=== PATIENT | male | born 1965 | race Caucasian/White ===

== ENCOUNTER → 2018-11-20 08:53 | Outpatient (CLI) | payer OTHER, SELFPAY ==
[2018-11-20 12:39] LABS: Absolute Lymphocyte Count 1.53 X10^3/ul (0.83-4.51); Absolute Neutrophil Count 3.8 X10^3/uL (2.0-7.7); Basophil# 0.04 X10^3/uL; Basophil% 0.6 % (0-1); Eosinophil# 0.27 X10^3/uL; Eosinophils% 4.3 % (0-5); Hematocrit 46.2 % (40-54); Hemoglobin 14.8 g/dl (13.0-16.5); Lymphocyte # 1.53 X10^3/ul (4.0); Lymphocyte % 24.2 % (19-41); Mean Corpuscular Hgb 29.6 pg (27.0-32.0); Mean Corpuscular Volume 92.4 fL (80-94); Mean Platelet Vol. 12.1 fl (6.2-12.0); Monocyte# 0.65 X10^3/uL; Monocyte% 10.3 % (0-10); Neutrophil # 3.81 X10^3/uL (2.7-7.7); Neutrophil % 60.4 % (47-70); Platelet Count 249 K/mm3 (150-450); RBC Distribution Width CV 12.7 % (11.6-14.6); RBC Distribution Width SD 42.1 fl (35.1-43.9); White Blood Count 6.3 K/mm3 (4.4-11.0)
[2018-11-20 12:53] LABS: POSITIVE COUNT NO; POSITIVE DIFFERENTIAL NO; POSITIVE MORPHOLOGY NO
[2018-11-20 13:07] LABS: ALB/GLOB Ratio 1.1 RATIO (0.9-2.4); AST(SGOT) 27 U/L (15-37); Alanine Aminotransfer ALT/SGPT 58 U/L (16-61); Albumin, Serum 3.8 g/dL (3.2-5.0); Alkaline Phosphatase 106 U/L (45-117); Anion Gap 4 (5-15); BUN 7 mg/dL (7-18); BUN/Creat Ratio 9.7 RATIO (10-20); Calcium,Total 8.4 mg/dL (8.5-10.1); Chloride 106 mmol/L (98-107); Creatinine, Serum 0.72 mg/dL (0.70-1.30); EST Glomerular Filtration Rate 122 mL/min (>60); Est Glom Filt Rate - Afr Amer 148 mL/min (>60); Globulin 3.5 g/dL (2.2-4.2); Glucose 87 mg/dL (74-106); Potassium 3.3 mmol/L (3.5-5.1); Protein, Total 7.3 g/dL (6.4-8.2); Sodium Level 141 mmol/L (136-145); Thyroid Stim Hormone (TSH) 1.73 uIU/mL (0.358-3.74)
== END ==
PROVIDERS: Family Provider Family Medicine Geriatric Medicine; PCP Family Medicine Geriatric Medicine; Visit Provider Family Medicine Geriatric Medicine
DX: R53.83 Other fatigue (principal)
CPT/HCPCS: 36415; 80053; 84443; 85025

== ENCOUNTER → 2019-01-01 15:50 | Outpatient (CLI) | payer OTHER, SELFPAY ==
[2018-06-12 12:30] VITALS: BMI 27.1
[2019-01-01 17:27] LABS: Anion Gap 2 (5-15); BUN 7 mg/dL (7-18); BUN/Creat Ratio 9.5 RATIO (10-20); Calcium,Total 8.4 mg/dL (8.5-10.1); Chloride 107 mmol/L (98-107); Creatinine, Serum 0.74 mg/dL (0.70-1.30); EST Glomerular Filtration Rate 119 mL/min (>60); Est Glom Filt Rate - Afr Amer 144 mL/min (>60); Glucose 97 mg/dL (74-106); Potassium 4.2 mmol/L (3.5-5.1); Sodium Level 140 mmol/L (136-145)
== END ==
PROVIDERS: Family Provider Family Medicine Geriatric Medicine; PCP Family Medicine Geriatric Medicine; Visit Provider Family Medicine Geriatric Medicine
DX: E87.6 Hypokalemia (principal)
CPT/HCPCS: 36415; 80048

== ENCOUNTER → 2019-07-14 09:30 | Outpatient (CLI) | payer OTHER, SELFPAY ==
--- NOTE | 2019-07-14 09:57 | MRI_ITS ---
STUDY: MRI BRAIN WITH AND WITHOUT CONTRAST REASON FOR EXAM: Male, 54 years old. Multiple sclerosis TECHNIQUE: Standardized multiplanar fat and water weighted pulse sequences were obtained. IV Dotarem 17 was administered for the contrast portion of the examination. COMPARISON: 20 August 2017 FINDINGS: There is a new 5 mm lesion in the right paramedian frontal lobe, posteromedial to a previously seen stable appearing lesion. Remainder of the white matter lesion burden of multiple sclerosis is stable and moderately extensive. Moderate number of lesions have vacuolated. Due to mild improvement in technique the visibility of the lesions is improved. There are no individual lesions greater than 1 cm. Confluent white matter abnormalities present surrounding the right occipital horn and atrium. Brainstem is spared. Brain volume is normal. There are no enhancing lesions. Remainder of the intracranial structures are normal. MRI/Brain W/WO Contrast IMPRESSION: 1. No enhancing lesions. 2. Mild disease progression, one new right frontal lesion. 3. Moderate disease burden of multiple sclerosis. 4. No brainstem lesions. 5. Normal brain volume. Electronically Signed: Nikita Drake, at 19:45 EST Tel , Service support ,
== END ==
PROVIDERS: Family Provider Family Medicine Geriatric Medicine; PCP Family Medicine Geriatric Medicine; Referring Provider Internal Medicine; Visit Provider Internal Medicine
DX: G35 Multiple sclerosis (principal)
CPT/HCPCS: 70553; A9575

== ENCOUNTER → 2019-12-25 | Outpatient (CLI) | payer OTHER, SELFPAY ==
[2018-06-12 12:30] VITALS: BMI 27.1
[2019-12-25 13:54] LABS: Absolute Lymphocyte Count 1.35 X10^3/uL (0.83-4.51); Absolute Neutrophil Count 3.6 X10^3/uL (2.0-7.7); Basophil# 0.07 X10^3/uL; Basophil% 1.2 % (0-1); Eosinophil# 0.24 X10^3/uL; Eosinophils% 4.1 % (0-5); Hemoglobin 15.1 g/dL (13.0-16.5); Lymphocyte # 1.35 X10^3/ul (4.0); Mean Corp Hgb Conc 32.8 g/dL (32-36); Mean Corpuscular Volume 91.5 fL (80-94); Mean Platelet Vol. 11.9 fl (6.2-12.0); Monocyte# 0.62 X10^3/uL; Monocyte% 10.6 % (0-10); NRBC Flagged by Analyzer 0 % (0-5); Neutrophil # 3.57 X10^3/uL (2.7-7.7); Neutrophil % 60.8 % (47-70); Platelet Count 245 K/mm3 (150-450); RBC Distribution Width CV 12.5 % (11.6-14.6); RBC Distribution Width SD 40.9 fl (35.1-43.9); Red Blood Count 5.03 M/mm3 (4.6-6.2); White Blood Count 5.9 K/mm3 (4.4-11.0)
[2019-12-25 14:25] LABS: AST(SGOT) 20 U/L (15-37); Alanine Aminotransfer ALT/SGPT 32 U/L (16-61); Albumin, Serum 3.7 g/dL (3.2-5.0); Alkaline Phosphatase 94 U/L (45-117); Anion Gap 4 (5-15); BUN 8 mg/dL (7-18); BUN/Creat Ratio 11.2 RATIO (10-20); Calcium,Total 8.9 mg/dL (8.5-10.1); Chloride 108 mmol/L (98-107); Creatinine, Serum 0.72 mg/dL (0.70-1.30); EST Glomerular Filtration Rate 123 mL/min (>60); Est Glom Filt Rate - Afr Amer 148 mL/min (>60); Globulin 3.6 g/dL (2.2-4.2); Glucose 73 mg/dL (74-106); Protein, Total 7.3 g/dL (6.4-8.2); Sodium Level 142 mmol/L (136-145); Thyroid Stim Hormone (TSH) 1.45 uIU/mL (0.358-3.74)
== END | disposition home or self-care (01) ==
LOC: LAB.FUTURE 12:07 → LAB 12:09
PROVIDERS: PCP Family Medicine Geriatric Medicine; Referring Provider Family Medicine Geriatric Medicine; Visit Provider Family Medicine Geriatric Medicine
DX: R53.83 Other fatigue (principal)
CPT/HCPCS: 36415; 80053; 84443; 85025

== ENCOUNTER 2020-05-14 07:27 | Emergency (ER) | payer OTHER, SELFPAY ==
[2020-05-14 07:29] VITALS: BP 117/86; PULSE 89; RESP 16; TEMP 36.7; O2SAT 100; BMI 26.4
[2020-05-14 07:31] VITALS: BP 117/86; PULSE 89; RESP 16; TEMP 36.7; O2SAT 100
--- NOTE | 2020-05-14 07:39 | ED.VIS.GEN ---
History of Present Illness Chief Complaint: Abscess Informant: Patient Onset: Today Context: Gradual Onset Timing: Continuous Current Severity: Moderate Maximum Severity: Moderate Narrative: The patient is a 54-year-old male with medical history significant for MS who is on immune response infusion twice a year that presents to the emergency department with abscess on his left buttock. Patient states he woke this morning. He states from time to time, he will get small follicles or ingrown hairs on his buttocks. He states today, he noticed there was an area that popped and was draining. He states that it was mostly blood-tinged. He denies any fevers or chills. He does admit to some mild pain at the area. He is otherwise been in his normal state of health. Prior similar symptoms: Yes Recent Illness/Hospitalization: No Past Medical History - Allergies and Home Meds Allergies/Adverse Reactions: Allergies Penicillins Allergy (Verified 05/14/20 07:27) Hives Primary Care Physician: Rachid Hyde Chi, MD [Primary Care Provider] - Prior records reviewed: Yes Past Medical History: - - MS Surgical History: noncontributory Smoking Status: Never smoker Review of Systems General: Denies: Chills, Fever, Sweats Eyes: Denies: Visual changes - bilaterally, Diplopia ENT: Denies: Rhinorrhea, Sore throat Cardiovascular: Denies: Chest pain, Palpitations Respiratory: Denies: Dyspnea, Cough, Dyspnea on exertion Gastrointestinal: Denies: Abdominal pain, Nausea, Vomiting, Diarrhea, Melena, Hematochezia Genitourinary: Denies: Dysuria, Hematuria, Frequency Musculoskeletal: Denies: Back pain, Extremity Pain Skin: Denies: Rash, Wounds Neurological: Denies: Headache, Weakness, Numbness Physical Exam Vital Signs/Narrative: Vital Signs Temp Pulse Resp BP Pulse Ox 05/14/20 07:31 98.1 F 89 16 117/86 H 100 05/14/20 07:29 98.1 F 89 16 117/86 H 100 Inital Vital Signs reviewed: Yes General: Well nourished, Well developed, No Acute Distress Head: Normocephalic, Atraumatic Eyes: Perrl, EOMI ENT: Moist mucous membranes, No rhinorrhea Neck: Supple, Nontender Cardiovascular: Regular rate, Regular rhythm, No murmurs Respiratory: No distress, CTA bilaterally, Chest nontender Abdomen: Soft, Nontender, Nondistended, Normal bowel sounds Rectal: - - Patient has small abscess on the left buttock that is lateral to the anal verge by approximately 6 cm. It does not appear to communicate. There is about 4 cm ovoid cellulitis with some mild drainage from the middle. No crepitus. No evidence of Itzel's. Back: Nontender, Normal Inspection Extremities: Nontender, No edema Skin: Normal color, No rash Neurological: Alert, Oriented x3, Cranial nerves II-XII grossly intact, Normal Strength, Normal Sensation Psychological: Normal affect, Normal Mood Diagnostic/Tx/Re-eval - Medical Decision Making The patient presents with spontaneously draining abscess on the left buttock. There is some surrounding cellulitis. There was a small poke hole. The area was cleansed with chlorhexidine. 3 cc of lidocaine 1% with epinephrine were injected locally. 11 blade was used to open the puncture. Hemostats were used to break up loculations. There was scant purulence mixed with old blood. This was removed. I did use a small cruciate excision to prevent using packing. Patient will be placed on oral antibiotics and will continue sitz bath's for the next 48 hours. I also counseled him on wound care and reasons to return. He is comfortable with this plan of care. Impression 1. Left gluteal abscess 2. Incision and drainage ED Disposition - Plan for ED Patient: Instructions: ED Abscess Incision And Drainage Prescriptions: Doxycycline 100 mg PO BID #20 cap Prescription Printed Referrals: Rachid Hyde Chi, MD [Primary Care Provider] -
[2020-05-14 08:15] VITALS: RESP 16
== END 2020-05-14 08:15 | disposition home or self-care (01) ==
PROVIDERS: Emergency Provider Emergency Medicine; PCP Family Medicine Geriatric Medicine
DX: L02.31 Cutaneous abscess of buttock (principal); G35 Multiple sclerosis
CPT/HCPCS: 10060; 99282

== ENCOUNTER → 2020-06-03 | Outpatient (CLI) | payer OTHER, SELFPAY ==
[2020-05-14 07:29] VITALS: BMI 26.4
[2020-06-03 20:30] LABS: M R Staph aureus DNA By PCR Negative (Negative); Probe Check PASS; Specimen Processing Control PASS
== END | disposition home or self-care (01) ==
PROVIDERS: PCP Family Medicine Geriatric Medicine; Referring Provider Family Medicine Geriatric Medicine; Visit Provider Family Medicine Geriatric Medicine
DX: B95.62 Methicillin resistant Staphylococcus aureus infection as the cause of diseases classified elsewhere (principal)
CPT/HCPCS: 87641

== ENCOUNTER → 2020-06-27 | Outpatient (CLI) | payer OTHER, SELFPAY ==
[2020-06-27 12:33] LABS: Absolute Lymphocyte Count 1.49 X10^3/uL (0.83-4.51); Basophil# 0.06 X10^3/uL; Basophil% 1.2 % (0-1); Eosinophil# 0.13 X10^3/uL; Eosinophils% 2.6 % (0-5); Hematocrit 46.2 % (40-54); Hemoglobin 14.6 g/dL (13.0-16.5); Lymphocyte # 1.49 X10^3/ul (4.0); Lymphocyte % 29.7 % (19-41); Mean Corp Hgb Conc 31.6 g/dL (32-36); Mean Corpuscular Hgb 29.5 pg (27.0-32.0); Mean Corpuscular Volume 93.3 fL (80-94); Mean Platelet Vol. 11.8 fl (6.2-12.0); Monocyte# 0.38 X10^3/uL; Monocyte% 7.6 % (0-10); NRBC Flagged by Analyzer 0 % (0-5); Neutrophil # 2.95 X10^3/uL (2.7-7.7); Neutrophil % 58.7 % (47-70); Platelet Count 274 K/mm3 (150-450); RBC Distribution Width CV 12.4 % (11.6-14.6); RBC Distribution Width SD 42.5 fl (35.1-43.9); Red Blood Count 4.95 M/mm3 (4.6-6.2)
[2020-06-27 13:00] LABS: ALB/GLOB Ratio 1.1 RATIO (0.9-2.4); AST(SGOT) 22 U/L (15-37); Alanine Aminotransfer ALT/SGPT 40 U/L (16-61); Albumin, Serum 3.8 g/dL (3.2-5.0); Alkaline Phosphatase 84 U/L (45-117); Anion Gap 5 (5-15); BUN 9 mg/dL (7-18); BUN/Creat Ratio 10.7 RATIO (10-20); Chloride 107 mmol/L (98-107); Creatinine, Serum 0.84 mg/dL (0.70-1.30); EST Glomerular Filtration Rate 101 mL/min (>60); Est Glom Filt Rate - Afr Amer 122 mL/min (>60); Globulin 3.4 g/dL (2.2-4.2); Glucose 91 mg/dL (74-106); Potassium 3.9 mmol/L (3.5-5.1); Protein, Total 7.2 g/dL (6.4-8.2); Sodium Level 142 mmol/L (136-145); Thyroid Stim Hormone (TSH) 1.72 uIU/mL (0.358-3.74)
== END | disposition home or self-care (01) ==
LOC: POLAB3 09:34
PROVIDERS: PCP Family Medicine Geriatric Medicine; Visit Provider Family Medicine Geriatric Medicine
DX: R53.83 Other fatigue (principal)
CPT/HCPCS: 36415; 80053; 84443; 85025

== ENCOUNTER → 2020-07-08 | Outpatient (CLI) | payer OTHER, SELFPAY ==
--- NOTE | 2020-07-08 | LES_PTH ---
PATIENT: KELLY BAILEY LOC: [facility] U#:[id number] AGE/SX: 55/M ROOM: RE07/08/[address]: Dr. Rachid Hyde MD : 1965 BED: DIS: 07/08/2020 SPEC #: [id number] RECD: 07/08/20 12:45 STATUS: [place] [facility] #: [id number] REJI: 07/08/20 00:[address]: Rachid Hyde Chi DEPT: SURGICAL PATHOLOGY RECD BY: Makayla Judd Tissues: Skin of neck, NOS Procedures: Surgery Specimen Level IV HEADER OPERATION: Biopsy PRE-OP DIAGNOSIS: L81.9 TISSUE SUBMITTED: Neck MICROSCOPIC DIAGNOSIS Skin lesion of neck, shave biopsy: Actinic keratosis, hyperkeratotic type, mildly inflamed. AM:brigid 07/09/20 MICROSCOPIC DESCRIPTION Slides are reviewed. GROSS DESCRIPTION Received in fixative is one container labeled with the patient's name and designated neck. The specimen consists of a round piece of morrow-white skin measuring 0.7 cm in diameter and 0.2 cm in thickness. The specimen is inked and submitted entirely in one cassette. It will be sectioned at the time of embedding. / SJ:brigid 07/08/20 TC:5 CPT: 40682
== END | disposition home or self-care (01) ==
LOC: POLAB3 12:03 → LABSPEC 12:04
PROVIDERS: PCP Family Medicine Geriatric Medicine; Visit Provider Family Medicine Geriatric Medicine
DX: L81.9 Disorder of pigmentation, unspecified (principal)
CPT/HCPCS: 88305

== ENCOUNTER 2020-08-18 19:32 | Emergency (ER) | payer OTHER, SELFPAY ==
[2020-07-15 14:06] VITALS: BMI 26.9
[2020-08-18 19:33] VITALS: BP 133/80; PULSE 79; RESP 18; TEMP 36.6; O2SAT 100; BMI 27.8
[2020-08-18 19:34] VITALS: BP 133/80; PULSE 79; RESP 18; TEMP 36.6; O2SAT 100
--- NOTE | 2020-08-18 19:41 | ED.VIS.GEN ---
History of Present Illness Chief Complaint: Abscess Informant: Patient Narrative: 54-year-old male presents with abscess on the left gluteal region. He states he is had this in the past. Initially when he had the first 1 it was incised by an ED physician. He was supposed to follow-up with on an outpatient basis however he states it was doing well after antibiotics and incision and drainage and due to COVID-19 he did not want to get exposed. He is not had any systemic signs or symptoms such as fever or chills. He states he just noticed it started to drain today there was small amount of blood from the area on his left gluteal region. His bandaged this up and he came to the emergency room Past Medical History - Allergies and Home Meds Allergies/Adverse Reactions: Allergies Penicillins Allergy (Verified 07/15/20 14:07) Hives Primary Care Physician: Rachid Hyde Chi, MD [Primary Care Provider] - Past Medical History: - - MS Surgical History: noncontributory Lives: Spouse/ Significant Other Smoking Status: Never smoker Alcohol: None Drugs: None Review of Systems General: Denies: Chills, Fever, Sweats Eyes: Denies: Visual changes - bilaterally, Diplopia ENT: Denies: Rhinorrhea, Sore throat Cardiovascular: Denies: Chest pain, Palpitations Respiratory: Denies: Dyspnea, Cough, Dyspnea on exertion Gastrointestinal: Denies: Abdominal pain, Nausea, Vomiting, Diarrhea, Melena, Hematochezia Genitourinary: Denies: Dysuria, Hematuria, Frequency Musculoskeletal: Denies: Back pain, Extremity Pain Skin: Reports: Abscess - Left buttock Neurological: Denies: Headache, Weakness, Numbness Physical Exam Vital Signs/Narrative: Vital Signs Temp Pulse Resp BP Pulse Ox 08/18/20 19:34 97.8 F 79 18 133/80 H 100 08/18/20 19:33 97.8 F 79 18 133/80 H 100 General: Well nourished, Well developed, No Acute Distress Head: Normocephalic, Atraumatic Eyes: Perrl, EOMI ENT: Moist mucous membranes, No rhinorrhea Neck: Supple, Nontender Cardiovascular: Regular rate, Regular rhythm, No murmurs Respiratory: No distress, CTA bilaterally, Chest nontender Skin: - - Abscess on his buttock approximately 3 cm without any induration. There is slight drainage with expression. There is slight fluctuance here. Neurological: Alert, Oriented x3 Psychological: Normal affect, Normal Mood Diagnostic/Tx/Re-eval - Medical Decision Making Patient was seen and evaluated for left buttock abscess. It is slightly draining but likely needs to be opened. I offered incision and drainage however the patient now wants to wait until he sees his surgeon. He will call the office tomorrow. He states he has a prescription for clindamycin already in the pharmacy. I did express to him that the treatment involves incision and drainage and antibiotics but he still wants to wait. I counseled the patient if he cannot get in the office and he needs to have this incised he should return to the ER. Impression: 1. Left gluteal abscess 3 cm ED Disposition - Plan for ED Patient: Disposition: Home or Assisted Living Instructions: ED Abscess Antibiotic Treatment Only Referrals: Rachid Hyde Chi, MD [Primary Care Provider] -
== END 2020-08-18 20:16 | disposition home or self-care (01) ==
LOC: ED 20:15
PROVIDERS: Emergency Provider Student in an Organized Health Care Education/Training Program; PCP Family Medicine Geriatric Medicine
DX: L02.31 Cutaneous abscess of buttock (principal)
CPT/HCPCS: 99282

== ENCOUNTER 2020-09-04 10:55 | Day surgery (SDC) | payer OTHER, SELFPAY ==
[2020-07-15 14:06] VITALS: BMI 26.9
--- NOTE | 2020-08-06 03:48 | HP_ITS ---
Intake Vital Signs 07/15/20 Height 5 ft 9 in 07/15/20 Weight: 182 lb 2 oz 07/15/20 BMI 26.9 07/15/20 BP 122/75 H 07/15/20 Blood Pressure Location Rt brachial 07/15/20 Position Sitting 07/15/20 Respiration 18 07/15/20 Pulse 76 07/15/20 Pulse Source Monitor 07/15/20 Temp 98.0 F 07/15/20 Temp Source Temporal 07/15/20 Pulse Oximetry (%) 100 07/15/20 Oxygen Delivery Method room air Intake Visit Reasons: ABSCESS LEFT BUTTOCK AREA Chief Complaint: abscess left buttock Accompanied by: Is patient in pain?: No Allergies Penicillins Allergy (Verified 07/15/20 14:07) Hives Medications Escitalopram Oxalate 5 mg PO DAILY 05/14/20 [History Confirmed 07/15/20] Ocrelizumab [Ocrevus] 300 mg IV Q180D 05/14/20 [History Confirmed 07/15/20] clindamycin palmitate HCl 75 mg/5 mL oral solution 150 mg PO BID #100 ml 07/15/20 [Rx Confirmed 07/15/20] doxycycline calcium 50 mg/5 mL oral syrup 5 ml PO DAILY #473 ml 07/15/20 [Rx Confirmed 07/15/20] [facility] Medical History (Updated 07/15/20 @ 14:05 by Caren Rodriguez) Acute rhinosinusitis (Acute) Abscess of buttock, left (Acute) Difficulty balancing (Acute) Limb weakness (Acute) Multiple sclerosis (Acute) Seasonal allergies (Acute) Surgical History (Updated 07/15/20 @ 14:05 by Caren Rodriguez) History of hernia repair (Acute) Family History Other Multiple sclerosis Social History (Updated 07/16/20 @ 08:53 by Karissa MARTINEZ PAKvng) Smoking Status: Never smoker alcohol intake: never substance use type: does not use HPI HPI HPI: KELLY BAILEY, is a 55 M who presents to the office today for HPI HPI Surgical H&P: Yes HPI: KELLY BAILEY, is a 55 M who presents to the office today for Chronic left buttock wound. Patient reports that he Had incision and drainage in May. This problem has been going on for 4 months. He reports that it does come and go and occasionally drains. He says that antibiotics take care of and then it comes back. ROS General General: No weight change, appetite, fatigue, colon cancer or breast cancer HEENT HEENT: No difficulty swallowing, eye injury, eye surgery, swollen glands or hoarseness Endo Endocrine: No thyroid disease, diabetes mellitus, thyroid cancer, Hair loss, heat intolerance or cold intolerance Skin Skin: No rash or changing moles Breast Breast: No left breast lump, right breast lump, nipple discharge, breast pain, abnormal mammogram, abnormal US or breast enlargement Musc Musculoskeletal: No back problems, arthritis, rheumatoid arthritis, gout or joint pain Cardio Cardiovascular: No murmur, pacemaker, heart disease, atrial fibrillation, high blood pressure, heart attack, heart stent, palpitations, shortness of breat with exertion or chest pain Psych Psychiatric: Yes anxiety; no depression or hearing voices Resp Respiratory: No shortness of breath, No sleep apnea, No cough, No COPD, No asthma, No emphysema, No wheezing Gastro Gastrointestinal: No abdominal pain, No nausea or vomiting, No diarrhea, No constipation, No blood in stool, No acid reflux, No hemorrhoids, No ulcers, No gallbladder problem, No black,tarry stools Dhaval Hematologic: No blood thinners, No blood disorders, No bleeding, No anemia, No blood clots Exam Const General: cooperative Orientation: alert, oriented x3 Chest Breast Palpation: No nipple discharge Resp Effort & Inspection: normal respiratory effort Auscultation: clear to auscultation bilaterally Cardio Rate: regular rate Rhythm: regular rhythm Heart Sounds: no murmurs GI Inspection: non-distended Palpation: soft, nontender Skin Other: Patient has an area of erythema on the left buttock in the medial portion Assessment & Plan Problems 1. Left buttock abscess L02.31 Plan - Dr. Bryan Valdez MD The patient has left buttock abscess which is been there for 4 months. It does come and go and occasionally drains. At this point I believe the patient needs incision and debridement of the area. I discussed this with him under MAC local anesthesia in the operating room. I have given the patient a refill of his doxycycline and clindamycin and advised him to take these medications and follow-up if anything worsens. Otherwise I will see him back for surgery and debridement of this area. Bryan Valdez MD Pager: [facility] [address] [place] [address], [address] [place] [address] Office: Medications New: clindamycin palmitate HCl 150 mg (10 mL) PO BID 100 mL 1RF doxycycline calcium 5 mL PO DAILY 473 mL 1RF Coding Level of Care Code No Charge Diagnoses Left buttock abscess L02.31 I have re-examined the patient. There are no clinical changes since date of exam.
[2020-08-26 14:26] VITALS: BMI 27.4
[2020-09-04 11:13] VITALS: BP 138/84; PULSE 80; RESP 16; TEMP 36.8; O2SAT 100; BMI 26.8
[2020-09-04] MEDS: Lactated Ringers 1,000 ML 100 ML IV (11:46)
[2020-09-04] MEDS: Scopolamine 1mg/72hr Patch 1 PATCH TD (12:30)
[2020-09-04] MEDS: Bupiv/Epi 0.5% Mpf 30 ML Vial (13:55)
[2020-09-04 14:15] VITALS: BP 100/77; BP 138/84; PULSE 98; RESP 16; TEMP 36.1; O2SAT 97
--- NOTE | 2020-09-04 14:18 | PCM.OPRPT ---
Problem List (1) Left buttock abscess Status: Acute Report of Operation Date of Procedure: 09/04/20 Pre-Operative Diagnosis: Chronic left buttock abscess Post-Operative Diagnosis: Same Surgery/Procedure Performed:: Debridement of chronic left buttock abscess Description of Procedure: Patient was brought back to the operating room and general anesthesia was induced. Patient was then placed in prone jackknife position. The buttocks were prepped and draped in usual sterile fashion. A transverse incision was made over the abscessed area and electrocautery was used to dissect free the inflamed material until healthy fat was reached. We cavity was irrigated and suctioned dry and electrocautery was used to maintain hemostasis. The skin injected with local anesthetic the cavity was then packed with half-inch iodoform gauze and dressed. Patient tolerated procedure well. - Admit VTE Documentation VTE Mechan Device Prophylaxis: SCD's
--- NOTE | 2020-09-04 14:23 | PCM.DC.GS ---
Discharge Diet: Light diet - advance as tolerated Discharge Activity: May Not Drive - No driving for 1 week or while taking narcotic pain meds. May shower in (days): 1 Call your doctor if your incision/area has: Continuous Slow Oozing, Sudden Increased Bleeding, Increased Pain/ Swelling, Increased Redness, Foul Smelling Discharge, Swelling at the incision site Call your doctor if you observe: Fever of 101 or Higher Suture Line Care: Avoid Pulling/Pushing, Avoid Pinching/Bending Change Dressing in (Days):: 2 - Change dressing as needed, remove packing in 2 days Allergies/Adverse Reactions: Allergies Penicillins Allergy (Verified 09/04/20 11:26) Hives Medications to take at Discharge Escitalopram Oxalate 5 mg PO DAILY 05/14/20 Ocrelizumab [Ocrevus] 300 mg IV Q180D 05/14/20 Ascorbic Acid [Vitamin C] 1,000 mg PO DAILY 09/01/20 Acetaminophen/Codeine Liquid [Tylenol W/Cod Liq 300-30MG/12.5ML] 15 ml PO Q4H PRN PRN 3 Days #75 ml 09/04/20 Clindamycin Palmitate HCl [Clindamycin Pediatric] 150 mg PO BID 5 Days #100 ml 09/04/20 The following prescriptions were given: Clindamycin Palmitate HCl [Clindamycin Pediatric] 150 mg PO BID 5 Days #100 ml Transmission Status: Received by [facility] Acetaminophen/Codeine Liquid [Tylenol W/Cod Liq 300-30MG/12.5ML] 15 ml PO Q4H PRN PRN 3 Days #75 ml PRN Reason: Pain Score 4-10 Transmission Status: Received by [facility] Primary Care Physician: Rachid Hyde Chi, MD [Primary Care Provider] - Test Results: Test results from this visit will be discussed in further detail at your follow-up appointment, if applicable. Please Follow Up With: Bryan Valdez MD When: Please call to schedule 1 week follow up appointment. [phone]
[2020-09-04 14:30] VITALS: BP 107/84; BP 138/84; PULSE 90; RESP 16; O2SAT 97
[2020-09-04 14:45] VITALS: BP 126/92; BP 138/84; PULSE 90; RESP 16; O2SAT 99
[2020-09-04 14:52] VITALS: BP 117/87; BP 138/84; PULSE 89; RESP 16; TEMP 36.3; O2SAT 99
[2020-09-04 15:41] VITALS: BP 120/78; BP 138/84; PULSE 90; RESP 16; TEMP 36.5; O2SAT 99
== END 2020-09-04 15:42 | disposition home or self-care (01) ==
LOC: SDC 10:56 → AC 10:56
PROVIDERS: PCP Family Medicine Geriatric Medicine; Referring Provider Surgery; Visit Provider Surgery
PROC: (CPT 10060; principal; 2020-09-04 12:15)
DX: L02.31 Cutaneous abscess of buttock (principal); K21.9 Gastro-esophageal reflux disease without esophagitis; G35 Multiple sclerosis; Z79.899 Other long term (current) drug therapy; Z20.828 Contact with and (suspected) exposure to other viral communicable diseases
CPT/HCPCS: 10060; 87426; J7120; J2405

== ENCOUNTER → 2021-03-20 08:46 | Outpatient (CLI) | payer OTHER, SELFPAY ==
[2021-02-14 09:02] VITALS: BMI 28.8
[2021-03-20 12:23] LABS: Absolute Lymphocyte Count 1.47 X10^3/uL (0.83-4.51); Absolute Neutrophil Count 8.8 X10^3/uL (2.0-7.7); Basophil# 0.06 X10^3/uL; Basophil% 0.5 % (0-1); Eosinophils% 0.9 % (0-5); Hematocrit 47.3 % (40-54); Hemoglobin 15.4 g/dL (13.0-16.5); Lymphocyte # 1.47 X10^3/ul (0.83-4.51); Mean Corp Hgb Conc 32.6 g/dL (32-36); Mean Corpuscular Hgb 29.7 pg (27.0-32.0); Mean Corpuscular Volume 91.1 fL (80-94); Mean Platelet Vol. 11.5 fl (6.2-12.0); Monocyte# 0.83 X10^3/uL; Monocyte% 7.3 % (0-10); NRBC Flagged by Analyzer 0 % (0-5); Neutrophil # 8.81 X10^3/uL (2.7-7.7); Neutrophil % 77.9 % (47-70); Platelet Count 275 K/mm3 (150-450); RBC Distribution Width CV 12.3 % (11.6-14.6); RBC Distribution Width SD 40.8 fl (35.1-43.9); Red Blood Count 5.19 M/mm3 (4.6-6.2); White Blood Count 11.3 K/mm3 (4.4-11.0)
[2021-03-20 12:44] LABS: ALB/GLOB Ratio 1.1 RATIO (0.9-2.4); AST(SGOT) 22 U/L (15-37); Alanine Aminotransfer ALT/SGPT 33 U/L (16-61); Albumin, Serum 3.8 g/dL (3.2-5.0); Alkaline Phosphatase 98 U/L (45-117); Anion Gap 5 (5-15); BUN 8 mg/dL (7-18); BUN/Creat Ratio 9.1 RATIO (10-20); Calcium,Total 8.7 mg/dL (8.5-10.1); Chloride 105 mmol/L (98-107); Creatinine, Serum 0.88 mg/dL (0.70-1.30); EST Glomerular Filtration Rate 96 mL/min (>60); Est Glom Filt Rate - Afr Amer 116 mL/min (>60); Globulin 3.6 g/dL (2.2-4.2); Glucose 94 mg/dL (74-106); Potassium 3.9 mmol/L (3.5-5.1); Protein, Total 7.4 g/dL (6.4-8.2); Sodium Level 141 mmol/L (136-145); Thyroid Stim Hormone (TSH) 1.33 uIU/mL (0.358-3.74)
== END ==
PROVIDERS: PCP Family Medicine Geriatric Medicine; Visit Provider Family Medicine Geriatric Medicine
DX: R53.83 Other fatigue (principal)
CPT/HCPCS: 36415; 80053; 84443; 85025

== ENCOUNTER → 2021-06-12 12:24 | Outpatient (CLI) | payer OTHER, SELFPAY ==
--- NOTE | 2021-06-12 12:31 | MRI_ITS ---
STUDY: MRI BRAIN WITH AND WITHOUT CONTRAST REASON FOR EXAM: Male, 55 years old. MS F/U NO NEW COMPLAINTS TECHNIQUE: Standardized multiplanar fat and water weighted pulse sequences were obtained. IV 18 cc dotarem was administered for the contrast portion of the examination. COMPARISON: 14 July 2019 FINDINGS: There is a new left posterior frontal lobe paramedian 7 mm nonenhancing subcortical white matter lesion, new since July of 2019. There is a possible probable new right medial thalamic ill-defined lesion. Remainder of the white matter lesion burden of multiple sclerosis is stable and moderately extensive. Moderate number of lesions have vacuolated. Confluent white matter disease surrounds the occipital horns. There are stable left central medullary and right anterolateral right middle cerebellar peduncle lesions 5 -- 6 mm. These were present one year ago but not described in the report. There are no enhancing lesions. Remainder of intracranial structures are normal. MRI/Brain W/WO Contrast IMPRESSION: 1. No enhancing lesions. 2. Mild disease progression, one new left frontal lesion, probable new right thalamic lesion. 3. Moderate disease burden of multiple sclerosis. 4. Mild involvement of the brainstem. Electronically Signed: Nikita rDake MD at 14:39 EDT Tel , Service support ,
== END ==
PROVIDERS: PCP Family Medicine Geriatric Medicine; Referring Provider Internal Medicine; Visit Provider Internal Medicine
DX: G35 Multiple sclerosis (principal)
CPT/HCPCS: 70553; A9581

== ENCOUNTER 2022-08-23 20:59 | Emergency (ER) | payer OTHER, SELFPAY ==
[2022-08-23 21:00] VITALS: BP 133/95; PULSE 128; RESP 18; TEMP 37.8; O2SAT 100; BMI 27.1
--- NOTE | 2022-08-23 21:40 | EDS_ITS ---
HPI History of Present Illness Chief Complaint: Fatigue Detail of Chief Complaint: Leg weakness Informant: patient Onset/Context/Timing Onset: Today Narrative Narrative: Patient presents with bilateral leg weakness that started this morning. He states his right leg feels significant more weak than his left. He has a history of MS for the past 12 or 14 years. Has had problems like this with his prior MS flares. He spoke with his neurologist in [place] who did call and let me know the patient was coming in. The patient's recently tested positive for COVID although patient reported had a negative home test today. Neurologist wished for the patient to be evaluated to ensure no sign of infection before treating him with steroid burst for MS flare. [facility] Medical History Abscess of buttock, left Acute rhinosinusitis Difficulty balancing History of drainage of abscess (~08/2020) Limb weakness Multiple sclerosis Seasonal allergies Home Medications ocrelizumab 30 mg/mL intravenous solution 300 mg IV Q180D 05/14/20 [History Last Taken Unknown] ascorbic acid (vitamin C) 1,000 mg tablet 1,000 mg PO DAILY 09/01/20 [History Last Taken 09/04/20 08:00] oxybutynin chloride 10 mg tablet,extended release 24 hr 10 mg PO DAILY 08/23/22 [History Last Taken Unknown] prednisone 20 mg tablet 20 mg PO DAILY #18 tabs 08/23/22 [Rx Last Taken Unknown] Allergy/AdvReac Type Severity Reaction Status Date / Time Penicillins Allergy Hives Verified 08/23/22 21:22 Family History Other Multiple sclerosis Surgical History History of hernia repair Social History Smoking Status: Never smoker alcohol intake: never substance use type: does not use ROS ROS ED Constitutional Constitutional ED: Denies chills or fever(s) Eyes Eyes: Denies change in vision or discharge from eye(s) ENT ENT ED: Reports rhinorrhea; Denies discharge from eye(s) or sore throat Cardiovascular Cardiovascular: Denies chest pain or palpitations Respiratory/Chest Respiratory/Chest: Reports cough; Denies dyspnea Gastrointestinal Gastrointestinal: Denies abdominal pain, diarrhea, nausea or vomiting Genitourinary Genitourinary ED: Denies difficulty urinating or dysuria Musculoskeletal Musculoskeletal: Denies back pain or extremity pain Integumentary Denies Abrasions or rash Neurologic Neurologic: Reports weakness; Denies headache(s) Psychiatric Psychiatric: Denies anxiety or depression Allergic/Immunologic Allergic/Immunologic ED: Denies lip swelling or urticaria EXAM Physical Exam Const Vital Signs: 08/23/22 21:00 08/23/22 21:24 Temperature 100.1 F H Temperature Source Temporal Pulse Rate 128 H Respiratory Rate 18 Respiratory Effort Normal Non-Labored Respiratory Pattern Normal Blood Pressure 133/95 H Blood Pressure Mean 107 Pulse Ox 100 Oxygen Delivery Method Room Air Positive well nourished and well developed General Appearance ED: well developed HEENT Reports normocephalic and head/scalp atraumatic Eyes PERRL and EOMs intact bilaterally Neck supple Chest Wall inspection of chest normal and palpation of chest normal Resp normal respiratory effort and clear to auscultation bilaterally Cardio regular rhythm Rate: tachycardic GI normal to inspection, nondistended, normoactive bowel sounds Palpation: soft Back/Spine no CVA tenderness Extremity normal to inspection Neuro oriented x3 and no sensory deficits noted Neuro Narrative: Patient sitting in bedside chair. Patient able to lift both knees toward the ce iling with good strength. Was able to ambulate in the emergency room including to the restroom and back with his cane. Sensorium / Orientation: alert Psych mental status grossly normal Skin no rashes or lesions noted MDM MDM MDM Narrative Medical decision making narrative: Lab work, chest x-ray, urinalysis obtained. Swabs for COVID and influenza ordered. Lab Data Attestation: I reviewed the patient's lab results. Labs: Laboratory Results - last 24 hr 08/23/22 08/23/22 08/23/22 22:07 22:07 22:07 WBC 8.8 RBC 5.26 Hgb 16.0 Hct 48.1 MCV 91.4 MCH 30.4 MCHC 33.3 RDW Std Deviation 40.6 RDW Coeff of Ivonne 12.1 Plt Count 262 MPV 11.4 Immature Gran % (Auto) 0.300 Neut % (Auto) 75.7 H Lymph % (Auto) 8.3 L [place] % (Auto) 14.4 H Eos % (Auto) 0.8 Baso % (Auto) 0.5 Absolute Neuts (auto) 6.7 Absolute Lymphs (auto) 0.73 L Nucleated RBC % 0 ESR 13 Sodium 138 Potassium 3.4 L Chloride 105 Carbon Dioxide 29.0 Anion Gap 4 L BUN 11 Creatinine 0.89 Estim Creat Clear Calc 93.78 Est GFR (MDRD) Af Amer 115 Est GFR (MDRD) Non-Af 95 BUN/Creatinine Ratio 12.4 Glucose 122 H Calcium 9.1 Total Bilirubin 0.50 Direct Bilirubin 0.17 AST 22 ALT 42 Alkaline Phosphatase 90 C-React Prot Ext Range < 2.90 Total Protein 7.8 Albumin 4.0 Globulin 3.8 Urine Color Yellow Urine Clarity Clear Urine pH 7.0 Ur Specific [place] 1.010 Urine Protein Negative Urine Glucose (UA) Normal Urine Ketones Negative Urine Occult Blood Negative Urine Nitrite Negative Urine Bilirubin Negative Urine Urobilinogen Normal Ur Leukocyte Esterase Negative Urine RBC 0 SEEN Urine WBC 0 SEEN Ur Squamous Epith Cells 0 SEEN Urine Bacteria 0 SEEN Urine Mucus 0 SEEN Radiography Diagnostic Testing: Clinical Impression(s) from Imaging Studies Chest X-Ray 08/23/22 22:12 IMPRESSION: Normal x-ray examination of the chest. Electronically Signed: Milo Cameron MD at 22:27 EST , Treatment and Re-Evaluation Narrative: CBC was normal white count at 8.8 with 75% neutrophils. Chemistry studies remarkable only for slightly low potassium at 3.4. LFTs are unremarkable. Sed rate and CRP are normal. Urinalysis reveals no infection. Swab for COVID and influenza is negative. Patient was able to get up and ambulate across the [place] to the restroom with his cane. He would like to go home. I spoke with his neurologist, Dr. Friedman. Patient will be started on a prednisone taper. Return instructions are given. Discharge Plan Triage Chief Complaint: Fatigue Other Complaint: Lower Extremity Injury ED Provider: Kassi Castorena Dx/Rx/DC Orders Clinical Impression: Bilateral leg weakness, Multiple sclerosis exacerbation Instructions: Multiple Sclerosis Dc Prescriptions: New prednisone 20 mg tablet 20 mg PO DAILY Qty: 18 0RF Rx Instructions: 3 tabs (60mg) daily for 3 days, then 2 tabs (40mg) daily for 3 days, then 1 tab (20mg) daily for 3 days. No Action ocrelizumab 300 MG/10 ML solution 300 mg IV Q180D ascorbic acid (vitamin C) 1,000 MG tablet 1,000 mg PO DAILY oxybutynin chloride 10 mg tablet extended release 24hr 10 mg PO DAILY Label Comments: TAKE 1 TABLET BY MOUTH EVERY DAY Primary Care Provider: Rachid Hyde Chi Referrals: Rachid Hyde Chi, MD [Primary Care Provider] - Activity Restrictions/Additional Instructions: Please follow-up with your neurologist as instructed. Disposition Disposition: Home, Self Care
--- NOTE | 2022-08-23 22:12 | RAD_ITS ---
STUDY: X-RAY CHEST REASON FOR EXAM: Male, 57 years old. cough TECHNIQUE: Single AP portable view of the chest. COMPARISON: 11/01/2016 FINDINGS: The lungs are clear and expanded. There is no demonstrated pleural abnormality. Normal size heart. Normal mediastinum and ki. Normal visualized pulmonary arteries. Normal visualized aortic arch and descending thoracic aorta. Normal visualized thoracic spine. Normal visualized ribs, clavicles, and shoulders. There is no demonstrated abnormality of the visualized soft tissue structures of the upper abdomen. RAD/Chest 1 View (Portable) IMPRESSION: Normal x-ray examination of the chest. Electronically Signed: Milo Cameron MD at 22:27 [facility] ,
[2022-08-23 22:15] LABS: Bacteria 0 SEEN /hpf (None Seen); Mucous, Urine 0 SEEN /hpf (<or=2+); Red Blood Cells-Urine 0 SEEN /hpf (0-5); Squamous Epithelial Cells - UA 0 SEEN /hpf (0-5); White Blood Cells 0 SEEN /hpf (0-5)
[2022-08-23 22:24] LABS: Color, Urine Yellow (Yellow); Glucose, Dipstick Normal (Normal); Ketone-Dipstick Negative (Negative); Leukocyte Esterase-Dipstick Negative /ul (Negative); Nitrite-Dipstick Negative (Negative); Occult Blood-Urine Negative /ul (Negative); Protein-Dipstick Negative (Negative); Urine Bilirubin Dipstick Negative (Negative); Urine Clarity Clear (Clear); Urine Urobilinogen Normal (Normal)
[2022-08-23 22:26] LABS: Absolute Lymphocyte Count 0.73 X10^3/uL (0.83-4.51); Absolute Neutrophil Count 6.7 X10^3/uL (2.0-7.7); Basophil# 0.04 X10^3/uL; Basophil% 0.5 % (0-1); Eosinophil# 0.07 X10^3/uL; Eosinophils% 0.8 % (0-5); Hematocrit 48.1 % (40-54); Lymphocyte # 0.73 X10^3/ul (0.83-4.51); Lymphocyte % 8.3 % (19-41); Mean Corp Hgb Conc 33.3 g/dL (32-36); Mean Corpuscular Hgb 30.4 pg (27.0-32.0); Mean Corpuscular Volume 91.4 fL (80-94); Mean Platelet Vol. 11.4 fl (6.2-12.0); Monocyte# 1.27 X10^3/uL; Monocyte% 14.4 % (0-10); NRBC Flagged by Analyzer 0 % (0-5); Neutrophil # 6.68 X10^3/uL (2.7-7.7); Neutrophil % 75.7 % (47-70); Platelet Count 262 K/mm3 (150-450); RBC Distribution Width CV 12.1 % (11.6-14.6); RBC Distribution Width SD 40.6 fl (35.1-43.9); Red Blood Count 5.26 M/mm3 (4.6-6.2); White Blood Count 8.8 K/mm3 (4.4-11.0)
[2022-08-23 22:48] LABS: AST(SGOT) 22 U/L (15-37); Alanine Aminotransfer ALT/SGPT 42 U/L (16-61); Alkaline Phosphatase 90 U/L (45-117); Anion Gap 4 (5-15); BUN 11 mg/dL (7-18); BUN/Creat Ratio 12.4 RATIO (10-20); Bilirubin, Direct 0.17 mg/dL (0.00-0.30); CRP < 2.90 mg/L (0.0-3.0); Calcium,Total 9.1 mg/dL (8.5-10.1); Chloride 105 mmol/L (98-107); Creatinine, Serum 0.89 mg/dL (0.70-1.30); EST Glomerular Filtration Rate 95 mL/min (>60); Est Glom Filt Rate - Afr Amer 115 mL/min (>60); Estimated Creatinine Clearance 93.78 ml/min; Globulin 3.8 g/dL (2.2-4.2); Glucose 122 mg/dL (74-106); Potassium 3.4 mmol/L (3.5-5.1); Protein, Total 7.8 g/dL (6.4-8.2); Sodium Level 138 mmol/L (136-145)
[2022-08-23 22:56] LABS: Erythrocyte Sedimentation Rate 13 mm/hr (0-20)
[2022-08-23 22:59] VITALS: RESP 16
[2022-08-23 23:48] VITALS: RESP 18
[2022-08-23] MEDS: predniSONE 20 MG Tablet 60 MG PO (23:59)
== END 2022-08-24 00:05 | disposition home or self-care (01) ==
PROVIDERS: Emergency Provider Emergency Medicine; PCP Family Medicine Geriatric Medicine; Visit Provider Emergency Medicine
DX: R53.1 Weakness (principal); G35 Multiple sclerosis
CPT/HCPCS: 71045; 80048; 80076; 81001; 85025; 85652; 86140; 87428; 99283; A4216

== ENCOUNTER → 2022-09-17 | Outpatient (CLI) | payer OTHER, SELFPAY ==
[2022-09-17 13:12] LABS: Basophil# 0.04 X10^3/uL; Basophil% 0.6 % (0-1); Eosinophil# 0.14 X10^3/uL; Eosinophils% 2.1 % (0-5); Hematocrit 46.8 % (40-54); Hemoglobin 15.1 g/dL (13.0-16.5); Lymphocyte % 28.8 % (19-41); Mean Corp Hgb Conc 32.3 g/dL (32-36); Mean Platelet Vol. 11.7 fl (6.2-12.0); Monocyte# 0.52 X10^3/uL; Monocyte% 7.9 % (0-10); NRBC Flagged by Analyzer 0 % (0-5); Neutrophil # 3.96 X10^3/uL (2.7-7.7); Neutrophil % 60.1 % (47-70); Platelet Count 311 K/mm3 (150-450); RBC Distribution Width CV 12.2 % (11.6-14.6); RBC Distribution Width SD 41.6 fl (35.1-43.9); Red Blood Count 5.03 M/mm3 (4.6-6.2); White Blood Count 6.6 K/mm3 (4.4-11.0)
[2022-09-17 13:49] LABS: ALB/GLOB Ratio 1.1 RATIO (0.9-2.4); AST(SGOT) 20 U/L (15-37); Alanine Aminotransfer ALT/SGPT 43 U/L (16-61); Albumin, Serum 3.8 g/dL (3.2-5.0); Alkaline Phosphatase 76 U/L (45-117); Anion Gap 5 (5-15); BUN 12 mg/dL (7-18); BUN/Creat Ratio 14.9 RATIO (10-20); Calcium,Total 9.2 mg/dL (8.5-10.1); Chloride 106 mmol/L (98-107); Creatinine, Serum 0.81 mg/dL (0.70-1.30); EST Glomerular Filtration Rate 105 mL/min (>60); Est Glom Filt Rate - Afr Amer 128 mL/min (>60); Globulin 3.5 g/dL (2.2-4.2); Glucose 121 mg/dL (74-106); PSA,Total - Annual Screen 0.82 ng/mL (0.00-4.00); Potassium 3.9 mmol/L (3.5-5.1); Protein, Total 7.3 g/dL (6.4-8.2); Sodium Level 141 mmol/L (136-145)
== END | disposition home or self-care (01) ==
LOC: POLAB3 09:43
PROVIDERS: PCP Family Medicine Geriatric Medicine; Visit Provider Family Medicine Geriatric Medicine
DX: R53.83 Other fatigue (principal); Z12.5 Encounter for screening for malignant neoplasm of prostate
CPT/HCPCS: 36415; 80053; 84153; 84443; 85025; G0103

== ENCOUNTER → 2022-11-08 | Outpatient (CLI) | payer OTHER, SELFPAY ==
[2022-11-08 17:30] LABS: Absolute Lymphocyte Count 2.16 X10^3/uL (0.83-4.51); Absolute Neutrophil Count 4.5 X10^3/uL (2.0-7.7); Basophil# 0.06 X10^3/uL; Basophil% 0.8 % (0-1); Eosinophil# 0.12 X10^3/uL; Eosinophils% 1.6 % (0-5); Hematocrit 47.1 % (40-54); Hemoglobin 15.4 g/dL (13.0-16.5); Lymphocyte # 2.16 X10^3/ul (0.83-4.51); Lymphocyte % 28.5 % (19-41); Mean Corp Hgb Conc 32.7 g/dL (32-36); Mean Corpuscular Hgb 30.4 pg (27.0-32.0); Mean Corpuscular Volume 92.9 fL (80-94); Mean Platelet Vol. 10.9 fl (6.2-12.0); Monocyte# 0.71 X10^3/uL; Monocyte% 9.4 % (0-10); NRBC Flagged by Analyzer 0 % (0-5); Neutrophil # 4.49 X10^3/uL (2.7-7.7); Neutrophil % 59.3 % (47-70); Platelet Count 334 K/mm3 (150-450); RBC Distribution Width SD 40.9 fl (35.1-43.9); Red Blood Count 5.07 M/mm3 (4.6-6.2); White Blood Count 7.6 K/mm3 (4.4-11.0)
[2022-11-08 18:09] LABS: Anion Gap 7 (5-15); BUN 8 mg/dL (7-18); BUN/Creat Ratio 9.4 RATIO (10-20); Calcium,Total 9.3 mg/dL (8.5-10.1); Chloride 105 mmol/L (98-107); Creatinine, Serum 0.85 mg/dL (0.70-1.30); EST Glomerular Filtration Rate 99 mL/min (>60); Est Glom Filt Rate - Afr Amer 120 mL/min (>60); Glucose 99 mg/dL (74-106); Potassium 3.9 mmol/L (3.5-5.1); Sodium Level 141 mmol/L (136-145)
== END | disposition home or self-care (01) ==
LOC: POLAB3 17:06
PROVIDERS: PCP Family Medicine Geriatric Medicine; Visit Provider Family Medicine Geriatric Medicine
DX: R51.9 Headache, unspecified (principal)
CPT/HCPCS: 36415; 80048; 85025

== ENCOUNTER → 2022-11-10 | Outpatient (CLI) | payer OTHER, SELFPAY ==
--- NOTE | 2022-11-10 16:51 | CT_ITS ---
STUDY: CT BRAIN WITHOUT CONTRAST REASON FOR EXAM: Male, 57 years old. PASCUAL. PATIENT HAS MS FOR 12 YEARS RADIATION DOSAGE (If Supplied By Facility): CTDIvol = ( 44.99 ) mGy, DLP = ( 812.98 ) mGycm TECHNIQUE: Transaxial CT imaging of the brain was performed without administration of intravenous contrast material. Individualized dose optimization techniques were used for this CT. COMPARISON: No relevant priors. FINDINGS: Normal soft tissue structures. Normal calvarium. Normal size ventricles and extra-axial spaces for the patient''s age. There is evidence of a periventricular areas of decreased attenuation more prominent surrounding the occipital lobes and posterior aspect of the lateral ventricles bilaterally worse on the right side. This is in keeping with the patient''s history of a multiple sclerosis. These were seen on prior MRI examination. Normal basal ganglia and thalami. Normal brainstem. Normal cerebellum. There is no intracranial hemorrhage. There are no findings of an acute ischemic infarction. Minimal nodular thickening along the lateral wall of the right maxillary sinuses and anterior aspect of the right sphenoid sinus. CT/Brain/Head without Contrast IMPRESSION: Areas of decreased attenuation in the periventricular distribution along the posterior lateral ventricles worse on the right side. Patient is known to have multiple sclerosis. Electronically Signed: Margarito Sheppard MD at 17:15 EST ,
== END | disposition home or self-care (01) ==
LOC: CT 16:49
PROVIDERS: PCP Family Medicine Geriatric Medicine; Referring Provider Family Medicine Geriatric Medicine; Visit Provider Family Medicine Geriatric Medicine
DX: R51.9 Headache, unspecified (principal)
CPT/HCPCS: 70450

== ENCOUNTER → 2023-05-18 | Outpatient (CLI) | payer OTHER, SELFPAY ==
--- NOTE | 2023-05-18 12:30 | MRI_ITS ---
STUDY: MRI BRAIN WITH AND WITHOUT CONTRAST REASON FOR EXAM: Male, 57 years old. MS TECHNIQUE: Standardized multiplanar fat and water weighted pulse sequences were obtained. IV clariscan 17ml was administered for the contrast portion of the examination. COMPARISON: [June 12, 2021 FINDINGS: Normal size of the ventricles and extra-axial spaces for the patient''s age. There are multiple periventricular white matter lesions bilaterally several of which demonstrate appearance of Arreola''s fingers consistent with clinical history of multiple sclerosis.. There is no mass effect or restricted diffusion.. There is no enhancing white matter plaque to suggest presence of acute demyelination at this time Normal bilateral basal ganglia. Normal thalami. There is no extra-axial fluid accumulation. Normal flow voids within the major intracranial circulation suggesting patency by spin echo criteria. Normal venous enhancement. There is no enhancing intra-axial or extra-axial abnormality. Normal sella turcica, pituitary gland, infundibular stalk, optic chiasm and hypothalamus. Normal tectal plate and pineal gland. Normal midbrain, oanh and medulla. Normal cerebellum. Normal basal cisterns. Normal bilateral temporal bones. Normal bilateral internal auditory canals. No demonstrated orbital abnormality, within the constraints of a routine brain study. Mild polypoid mucosal thickening of the right maxillary sinus. Normal calvarium and skull base. Normal visualized soft tissue structures. No significant change in burden of white matter plaques since previous study MRI/Brain W/WO Contrast IMPRESSION: Findings consistent with known multiple sclerosis with moderate burden of disease unchanged since prior exam without evidence for acute demyelination.. Electronically Signed: Alex Rogers MD at 16:19 EDT ,
--- NOTE | 2023-05-18 12:30 | MRI_ITS ---
STUDY: MRI CERVICAL SPINE WITH AND WITHOUT CONTRAST REASON FOR EXAM: Male, 57 years old. MS TECHNIQUE: Standardized fat and water weighted pulse sequences were obtained in the sagittal and axial following administration of IV clariscan 17ml. COMPARISON: None FINDINGS: Normal foramen magnum and brainstem-cervical cord junction. Normal craniovertebral junction. Normal anterior atlantoaxial articulation. Normal odontoid process. Normal cervical lordosis. Normal vertebral bodies and posterior osseous elements. C2-3: Normal endplates. Normal disc height, signal and tiny central disc protrusion. Normal central canal and intervertebral neural foramina. C3-4: Normal endplates. Normal disc height, signal and small left paracentral disc protrusion.. Normal central canal and intervertebral neural foramina. C4-5: Normal endplates. Normal disc height, signal and tiny central disc protrusion. Normal central canal and intervertebral neural foramina. C5-6: Normal endplates. Normal disc height, signal and minimal bulging of the disc. Normal central canal and intervertebral neural foramina. C6-7: Normal endplates. Normal disc height, signal and minimal bulging disc.. Normal central canal and intervertebral neural foramina. C7-T1: Normal endplates. Normal disc height, signal and morphology. Normal central canal and intervertebral neural foramina. There are multiple high signal lesions within the cervical cord posterior to C2 vertebral body on the left and at C2-3. There is a similar-appearing lesion in the midline and to the right of the midline posterior to C7 and C7-T1 disc spaces Following contrast administration there is equivocal enhancement of the plaques at C7 and C7-T1 however visualized only on the sagittal images likely artifactual. Normal visualized soft tissue structures. MRI/Spine Cervical W/WO Contrast IMPRESSION: No evidence for acute fracture or significant bony pathology. Mild multilevel disc disease without evidence for spinal stenosis or cord compression. Multiple intramedullary demyelinating plaques of the cord consistent with clinical history of multiple sclerosis.. No definitive evidence for active demyelination as described above however clinical correlation is recommended Electronically Signed: Alex Rogers MD at 16:27 EDT ,
== END | disposition home or self-care (01) ==
PROVIDERS: PCP Family Medicine Geriatric Medicine; Referring Provider Internal Medicine; Visit Provider Internal Medicine
DX: G35 Multiple sclerosis (principal)
CPT/HCPCS: 70553; 72156; A9575

== ENCOUNTER → 2023-11-11 | Outpatient (CLI) | payer OTHER, SELFPAY ==
[2023-11-11 10:32] LABS: Absolute Neutrophil Count 5.6 X10^3/uL (2.0-7.7); Basophil# 0.04 X10^3/uL; Basophil% 0.5 % (0-1); Eosinophil# 0.18 X10^3/uL; Eosinophils% 2.2 % (0-5); Hematocrit 46.9 % (40-54); Hemoglobin 15.2 g/dL (13.0-16.5); Mean Corp Hgb Conc 32.4 g/dL (32-36); Mean Corpuscular Hgb 29.6 pg (27.0-32.0); Mean Corpuscular Volume 91.2 fL (80-94); Mean Platelet Vol. 11.7 fl (6.2-12.0); Monocyte# 0.53 X10^3/uL; Monocyte% 6.5 % (0-10); NRBC Flagged by Analyzer 0 % (0-5); Neutrophil # 5.62 X10^3/uL (2.7-7.7); Neutrophil % 68.7 % (47-70); Platelet Count 266 K/mm3 (150-450); RBC Distribution Width CV 11.9 % (11.6-14.6); RBC Distribution Width SD 39.1 fl (35.1-43.9); Red Blood Count 5.14 M/mm3 (4.6-6.2); White Blood Count 8.2 K/mm3 (4.4-11.0)
[2023-11-11 10:52] LABS: ALB/GLOB Ratio 1.1 RATIO (0.9-2.4); AST(SGOT) 22 U/L (15-37); Alanine Aminotransfer ALT/SGPT 32 U/L (16-61); Albumin, Serum 3.7 g/dL (3.2-5.0); Alkaline Phosphatase 83 U/L (45-117); Anion Gap 6 (5-15); BUN 10 mg/dL (7-18); BUN/Creat Ratio 13.4 RATIO (10-20); Calcium,Total 8.9 mg/dL (8.5-10.1); Chloride 107 mmol/L (98-107); Creatinine, Serum 0.75 mg/dL (0.70-1.30); EST Glomerular Filtration Rate 115 mL/min (>60); Est Glom Filt Rate - Afr Amer 139 mL/min (>60); Globulin 3.3 g/dL (2.2-4.2); Glucose 107 mg/dL (74-106); PSA,Total - Annual Screen 0.67 ng/mL (0.00-4.00); Potassium 3.8 mmol/L (3.5-5.1); Sodium Level 141 mmol/L (136-145); Thyroid Stim Hormone (TSH) 1.12 uIU/mL (0.358-3.74)
== END | disposition home or self-care (01) ==
LOC: POLAB3 09:04
PROVIDERS: PCP Family Medicine Geriatric Medicine; Visit Provider Family Medicine Geriatric Medicine
DX: Z12.5 Encounter for screening for malignant neoplasm of prostate (principal); R53.83 Other fatigue
CPT/HCPCS: 36415; 80053; 84153; 84443; 85025; G0103

== ENCOUNTER → 2024-11-23 | Outpatient (CLI) | payer OTHER, SELFPAY ==
[2024-11-23 09:08] LABS: Absolute Lymphocyte Count 2.04 X10^3/uL (0.83-4.51); Absolute Neutrophil Count 4.5 X10^3/uL (2.0-7.7); Basophil# 0.06 X10^3/uL; Basophil% 0.8 % (0-1); Eosinophil# 0.15 X10^3/uL; Hematocrit 47.8 % (40-54); Hemoglobin 15.9 g/dL (13.0-16.5); Lymphocyte # 2.04 X10^3/ul (0.83-4.51); Lymphocyte % 27.8 % (19-41); Mean Corp Hgb Conc 33.3 g/dL (32-36); Mean Corpuscular Hgb 30.5 pg (27.0-32.0); Mean Corpuscular Volume 91.7 fL (80-94); Mean Platelet Vol. 10.8 fl (6.2-12.0); Monocyte# 0.59 X10^3/uL; NRBC Flagged by Analyzer 0 % (0-5); Neutrophil # 4.46 X10^3/uL (2.7-7.7); Neutrophil % 60.9 % (47-70); Platelet Count 292 K/mm3 (150-450); Red Blood Count 5.21 M/mm3 (4.6-6.2); White Blood Count 7.3 K/mm3 (4.4-11.0)
[2024-11-23 10:39] LABS: ALB/GLOB Ratio 1.5 RATIO (0.9-2.4); AST(SGOT) 26 U/L (<=37); Alanine Aminotransfer ALT/SGPT 32 U/L (<=46); Albumin, Serum 4.4 g/dL (3.5-5.0); Alkaline Phosphatase 98 U/L (40-129); Anion Gap 13 (5-15); BUN 9 mg/dL (4-19); BUN/Creat Ratio 11.7 RATIO (10-20); Calcium,Total 9.2 mg/dL (7.6-11.0); Carbon Dioxide 25.4 mmol/L (21.0-32.0); Chloride 102 mmol/L (98-108); Cholesterol 273 mg/dL (<=200); Creatinine, Serum 0.79 mg/dL (0.70-1.20); EST Glomerular Filtration Rate 103 (>60); Globulin 2.9 g/dL (2.2-4.2); Glucose 95 mg/dL (70-99); High Density Lipoprotein 52 mg/dL; Low Density Lipoprotein Calc. 191 mg/dL; PSA,Total - Annual Screen 0.41 ng/mL (0.02-4.00); Potassium 3.7 mmol/L (3.3-5.1); Protein, Total 7.3 g/dL (5.9-8.4); Sodium Level 140 mmol/L (133-145); Total Bilirubin 0.63 mg/dL (0.00-1.30); Triglycerides 152 mg/dL; Very Low Density Lipoprotein 30 mg/dL (5-40); cholesterol:hdl ratio screen 5.25
== END | disposition home or self-care (01) ==
LOC: POLAB3 08:55
PROVIDERS: PCP Family Medicine Geriatric Medicine; Visit Provider Family Medicine Geriatric Medicine
DX: Z12.5 Encounter for screening for malignant neoplasm of prostate (principal); E78.5 Hyperlipidemia, unspecified; R53.83 Other fatigue
CPT/HCPCS: 36415; 80053; 80061; 84153; 84443; 85025; G0103

== ENCOUNTER → 2025-01-02 | Outpatient (CLI) | payer OTHER, SELFPAY | END | disposition home or self-care (01) | PROVIDERS: PCP Family Medicine Geriatric Medicine; Referring Provider Family Medicine Geriatric Medicine; Visit Provider Family Medicine Geriatric Medicine | DX: L05.01 Pilonidal cyst with abscess (principal) | CPT/HCPCS: 87640 ==

== ENCOUNTER → 2025-01-14 | Outpatient (CLI) | payer OTHER, SELFPAY ==
[2025-01-14 17:45] LABS: ALB/GLOB Ratio 1.7 RATIO (0.9-2.4); AST(SGOT) 32 U/L (<=37); Alanine Aminotransfer ALT/SGPT 50 U/L (<=46); Albumin, Serum 4.3 g/dL (3.5-5.0); Alkaline Phosphatase 104 U/L (40-129); Anion Gap 9 (5-15); BUN 9 mg/dL (4-19); BUN/Creat Ratio 10.9 RATIO (10-20); Calcium,Total 9.2 mg/dL (7.6-11.0); Carbon Dioxide 25.6 mmol/L (21.0-32.0); Chloride 105 mmol/L (98-108); Creatinine, Serum 0.79 mg/dL (0.70-1.20); EST Glomerular Filtration Rate 103 (>60); Globulin 2.5 g/dL (2.2-4.2); Glucose 93 mg/dL (70-99); Potassium 4.4 mmol/L (3.3-5.1); Protein, Total 6.8 g/dL (5.9-8.4); Sodium Level 140 mmol/L (133-145); Total Bilirubin 0.68 mg/dL (0.00-1.30)
== END | disposition home or self-care (01) ==
LOC: LAB 16:07
PROVIDERS: PCP Family Medicine Geriatric Medicine; Referring Provider Family Medicine Geriatric Medicine; Visit Provider Family Medicine Geriatric Medicine
DX: E78.5 Hyperlipidemia, unspecified (principal)
CPT/HCPCS: 36415; 80053

== ENCOUNTER → 2025-01-17 | Outpatient (CLI) | payer OTHER, SELFPAY ==
--- NOTE | 2025-01-17 09:05 | US_ITS ---
PROCEDURE: ABDOMEN LIMITED 01/17/2025 REASON FOR EXAM: FATTY LIVER TECHNIQUE: Complete abdominal ultrasound east-scale images with color doppler. PATIENT PREPARATION: Per protocol COMPARISON: None FINDINGS: Liver: Diffusely echogenic suggesting fatty infiltration. Gallbladder: Solitary gallstone measuring 7 mm x 4 mm x 3 mm. Focal cholesterolosis of the gallbladder wall. Common bile duct: Normal measuring 3.7 mm . Pancreas: Visualized portions are unremarkable. The distal body and tail are obscured by bowel gas. Kidneys: The right kidney measures 11.1 cm 4.8 cm 4.9. There is a 1.9 cm x 1.5 cm 1.6 cm cyst in its midportion. US/Abdomen Limited IMPRESSION: Solitary gallstone. Small right renal cyst. Reading Location: [id number]
== END | disposition home or self-care (01) ==
LOC: US 09:03
PROVIDERS: PCP Family Medicine Geriatric Medicine; Referring Provider Family Medicine Geriatric Medicine; Visit Provider Family Medicine Geriatric Medicine
DX: K76.0 Fatty (change of) liver, not elsewhere classified (principal)
CPT/HCPCS: 76705

== ENCOUNTER → 2025-08-20 | Outpatient (CLI) | payer OTHER, SELFPAY ==
[2025-08-20 14:28] LABS: Hematocrit 45.4 % (40-54); Hemoglobin 15.2 g/dL (13.0-16.5); Immature Granulocytes Count 0.030 X10^3/uL (0.0-0.0); Mean Corp Hgb Conc 33.5 g/dL (32-36); Mean Corpuscular Volume 92.1 fL (80-94); Mean Platelet Vol. 10.5 fl (6.2-12.0); NRBC Flagged by Analyzer 0 % (0-5); Platelet Count 314 K/mm3 (150-450); RBC Distribution Width CV 12.0 % (11.6-14.6); RBC Distribution Width SD 40.7 fl (35.1-43.9); Red Blood Count 4.93 M/mm3 (4.6-6.2); White Blood Count 7.3 K/mm3 (4.4-11.0)
[2025-08-20 14:50] LABS: CPK Total, Creatine Kinase 69 U/L (24-195); Troponin T High Sensitivity < 6 ng/L (<=22)
[2025-08-20 14:51] LABS: AST(SGOT) 30 U/L (<=37); Alanine Aminotransfer ALT/SGPT 51 U/L (<=46); Albumin, Serum 4.4 g/dL (3.5-5.0); Alkaline Phosphatase 96 U/L (40-129); Anion Gap 11 (5-15); BUN 8 mg/dL (4-19); BUN/Creat Ratio 10.8 RATIO (10-20); Calcium,Total 9.3 mg/dL (7.6-11.0); Carbon Dioxide 25.2 mmol/L (21.0-32.0); Chloride 104 mmol/L (98-108); Globulin 2.7 g/dL (2.2-4.2); Glucose 98 mg/dL (70-99); Potassium 4.4 mmol/L (3.3-5.1)
[2025-08-20 22:10] LABS: Xtra Tube Kwok EXTRA TUBE
[2025-08-22 04:07] LABS: Myoglobin, Serum 32 ng/mL (28-72)
== END | disposition home or self-care (01) ==
LOC: POLAB3 14:10
PROVIDERS: PCP Family Medicine Geriatric Medicine; Visit Provider Family Medicine Geriatric Medicine
DX: R07.9 Chest pain, unspecified (principal)
CPT/HCPCS: 36415; 80053; 82550; 83874; 84484; 85025

== ENCOUNTER → 2025-08-22 | Outpatient (CLI) | payer OTHER, SELFPAY ==
--- NOTE | 2025-08-22 09:32 | EKG12_ITS ---
Test Reason : CP Blood Pressure : */* mmHG Vent. Rate : 61 BPM Atrial Rate : 61 BPM P-R Int : 160 ms QRS Dur : 74 ms QT Int : 410 ms P-R-T Axes : 11 72 54 degrees QTcB Int : 412 ms Normal sinus rhythm Normal ECG Confirmed by Uriel Mcneil ([id number]), non linear editor SAMSON LE ([id number]) on 08/23/2025 9:44:24 AM Referred By: Rachid Hyde Confirmed By: Uriel Mcneil
== END | disposition home or self-care (01) ==
LOC: PSN 09:31
PROVIDERS: PCP Family Medicine Geriatric Medicine; Referring Provider Family Medicine Geriatric Medicine; Visit Provider Family Medicine Geriatric Medicine
DX: R07.9 Chest pain, unspecified (principal)
CPT/HCPCS: 93005